=== PATIENT | male | born 1960 | race Caucasian/White ===

== ENCOUNTER 2022-10-13 21:08 | Emergency (ER) | payer BC ==
[2022-10-13 21:36] LABS: BASOPHILS # (AUTO) 0.1 10^3/uL (0.0-0.1); BASOPHILS % (AUTO) 0.8 %; EOSINOPHILS # (AUTO) 0.4 10^3/uL (0.0-0.7); HGB - HEMOGLOBIN 14.9 g/dL (14.0-18.0); LYMPHOCYTES # (AUTO) 2.8 10^3/uL (1.5-3.5); LYMPHOCYTES % (AUTO) 31.4 %; MEAN CORPUSCULAR HEMOGLOBIN 30.5 pg (27.0-31.0); MEAN CORPUSCULAR HGB CONC 34.7 g/dL (32.0-36.0); MEAN CORPUSCULAR VOLUME 87.9 fL (80.0-94.0); MEAN PLATELET VOLUME 8.3 fL (7.4-11.4); MONOCYTES % (AUTO) 11.2 %; NEUTROPHILS # (AUTO) 4.6 10^3/uL (1.5-6.6); NEUTROPHILS % (AUTO) 52.4 %; PLT - PLATELET COUNT 233 10^3/uL (130-450); RED BLOOD COUNT 4.89 10^6/uL (4.70-6.10); RED CELL DISTRIBUTION WIDTH 13.7 % (12.0-15.0); WHITE BLOOD COUNT 8.8 x10^3/uL (4.8-10.8)
[2022-10-13 21:49] LABS: ALBUMIN 4.6 g/dL (3.2-5.5); ALBUMIN/GLOBULIN RATIO 1.7 (1.0-2.2); BILIRUBIN,TOTAL 0.5 mg/dL (0.2-1.0); CALCIUM 9.7 mg/dL (8.5-10.3); CREATININE 0.9 mg/dL (0.6-1.3); POTASSIUM 3.9 mmol/L (3.5-4.5); TOTAL PROTEIN 7.3 g/dL (6.4-8.9)
--- NOTE | 2022-10-13 22:59 | XRAY Report ---
PROCEDURE: Chest 1 View X-Ray INDICATIONS: Chest pain TECHNIQUE: One view of the chest was acquired. COMPARISON: None. FINDINGS: Surgical changes and devices: None. Lungs and pleura: No pleural effusions or pneumothorax. Lungs are clear. Mediastinum: Mediastinal contours appear normal. Heart size is normal. Bones and chest wall: No suspicious bony lesions. Overlying soft tissues appear unremarkable. IMPRESSION: No acute cardiopulmonary disease. Reviewed by: Jairo Quinteros MD on 10/13/2022 10:58 PM PDT Approved by: Jairo Quinteros MD on 10/13/2022 10:58 PM PDT Station ID: [id number]
[2022-10-13] MEDS: SODIUM CHLORIDE 0.9% 1,000 ML IV STA (23:09)
--- NOTE | 2022-10-14 00:17 | ED Physician Documentation ---
PD HPI DYSPNEA - Stated complaint Stated Complaint: SOA/HEART PX - Chief complaint Chief Complaint: Cardiac - History obtained from History obtained from: Patient, Family - Additional information Additional information: The patient comes to the emergency department with chief complaint of "heavy lungs" and racing heart earlier today. The patient states that he worked in the yard all day and that during that time, he felt a slight sense of dyspnea which he can only describe as a feeling of "heavy lungs". He denies any chest pain or palpitations during that time. He states that he did not really notice any change with exertion. He has not been ill with anything recently. The patient states that he came in side and sat down for a while and a couple of hours later, he noticed that his heart felt as that was pounding. He checked on his blood pressure monitor and it said he had a heart rate of 140. The patient states this did not last very long within minutes, it was coming down into the 80s to 90s, but he is not exactly sure what caused it. He states that during the heart racing time, he did not have any other symptoms. There is no worsening of the sense of "heavy lungs" and he also did not have any chest pain or lightheadedness. The patient states that he has not seen a doctor in a very long time because his doctor left the practice. He states that he tries to stay in good shape and is not a smoker. He takes some vitamins and supplements. He denies any other complaints at this time. Right now, he does not feel as though his heart is racing and states that he still has a slightly heavy chested feeling but otherwise does not feel dyspneic. The patient does not have any underlying heart or lung conditions that he knows of. PD PAST MEDICAL HISTORY - Allergies Allergies/Adverse Reactions: Allergies Allergy/AdvReac Type Severity Reaction Status Date / Time Penicillins Allergy Emesis Verified 10/13/22 21:15 PD ED PE NORMAL - Vitals Vital signs reviewed: Yes - General General: Alert and oriented X 3, No acute distress, Well developed/nourished - HEENT HEENT: Atraumatic, PERRL, EOMI, Moist mucous membranes - Neck Neck: Supple, no meningeal sign - Cardiac Cardiac: RRR, No murmur, Strong equal pulses - Respiratory Respiratory: No respiratory distress, Clear bilaterally - Abdomen Abdomen: Soft, Non tender, Non distended - Derm Derm: Normal color, Warm and dry, No rash - Extremities Extremities: No deformity, No edema, No calf tenderness / cord - Neuro Neuro: Alert and oriented X 3, respiratory technician 2-12 intact, Normal speech - Psych Psych: Normal mood, Normal affect Results - Vitals Vitals: Oxygen O2 Source Room air - EKG (time done) 2117 EKG releavant findings:: EKG personally interpreted by author of this note. Relevant findings are: Rate: Rate (enter#) (89) Rhythm: NSR, Other (Multiple ectopic beats noted both atrial and ventricular) [place]: Normal Intervals: Normal HI, Other (RSR') QRS: Normal Ischemia: Non specific changes Compare to prior EKG: Old EKG unavailable Computer interpretation: Agree with computer - Labs Labs: Laboratory Tests 10/13/22 10/13/22 10/13/22 21:30 21:30 21:30 WBC 8.8 RBC 4.89 Hgb 14.9 Hct 43.0 MCV 87.9 MCH 30.5 MCHC 34.7 RDW 13.7 Plt Count 233 MPV 8.3 Neut # (Auto) 4.6 Lymph # (Auto) 2.8 [place] # (Auto) 1.0 Eos # (Auto) 0.4 Baso # (Auto) 0.1 Absolute Nucleated RBC 0.00 Nucleated RBC % 0.0 Sodium 137 Potassium 3.9 Chloride 101 Carbon Dioxide 32 Anion Gap 4.0 L BUN 18 Creatinine 0.9 Estimated GFR (MDRD) 86 L Glucose 77 Calcium 9.7 Total Bilirubin 0.5 AST 23 ALT 25 Alkaline Phosphatase 59 Troponin I High Sens 10.1 Total Protein 7.3 Albumin 4.6 Globulin 2.7 Albumin/Globulin Ratio 1.7 Lipase 26 10/13/22 23:34 WBC RBC Hgb Hct MCV MCH MCHC RDW Plt Count MPV Neut # (Auto) Lymph # (Auto) [place] # (Auto) Eos # (Auto) Baso # (Auto) Absolute Nucleated RBC Nucleated RBC % Sodium Potassium Chloride Carbon Dioxide Anion Gap BUN Creatinine Estimated GFR (MDRD) Glucose Calcium Total Bilirubin AST ALT Alkaline Phosphatase Troponin I High Sens 11.4 Total Protein Albumin Globulin Albumin/Globulin Ratio Lipase PD Medical Decision Making - ED course Complexity details: reviewed results, re-evaluated patient, considered differential, d/w patient, d/w family ED course: The patient was worked up with EKG which initially showed multiple ectopic beats, though these did clear up on the color television console monitor. He was found to be in a normal heart rate throughout his stay in the ED. The patient was evaluated with a CBC, ER abdominal panel and serial troponins, all of which were unremarkable. The patient's chest x-ray was also clear and his physical exam was normal. I discussed with the patient that I cannot account for his feeling of heavy lungs. I do not find anything historically or on physical exam to indicate a blood clot. We have discussed the need for follow-up in primary care and I have given him a list of primary care physicians. We have discussed the usual indications for return. Departure - Departure Disposition: Home, Self Care Clinical Impression: Palpitations Dyspnea Qualifiers: Dyspnea type: unspecified Qualified Code(s): R06.00 - Dyspnea, unspecified Condition: Stable Instructions: ED Dyspnea Shortness of Breath Comments: Your EKG, chest x-ray, labs, including both sets of cardiac enzymes, look good. It is not clear why you have been feeling a sense of "heavy lungs" today, nor is it clear what caused your heart rate to go up. It is important that you follow- up with your primary doctor as soon as possible for a checkup. A list of doctors and doctor's offices has been provided for you. Please call tomorrow to get established for outpatient primary care. Forms: PCP List Discharge Date/Time: 10/14/22 00:24
[2022-10-14 00:18] VITALS: BP 128/72
== END 2022-10-14 00:24 | disposition home or self-care (01) ==
LOC: ED 21:08
DX: R00.2 Palpitations (principal); R06.00 Dyspnea, unspecified
CPT/HCPCS: 36415; 80053; 83690; 84484; 85025; 93005; 99283; 99284